=== PATIENT | male | born 1995 | race African-American/Black ===

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

== ENCOUNTER 2017-03-20 18:04 | Emergency (ER) | payer MEDICAID ==
[~2017-03-20] VITALS: Ht 182.9 cm; Wt 71.5 kg
[2017-03-20 18:05] VITALS: BP 119/76
[2017-03-20] MEDS ORDERED: FLUORESCEIN OPHTHALMIC 1 MG STRIP ONE ×2 (18:13→18:29)
[2017-03-20] MEDS ORDERED: PROPARACAINE OPHTH 0.5%, 15ML ONE (18:14)
[2017-03-20] MEDS ORDERED: FLUORESCEIN OPHTHALMIC 1 MG STRIP EACHEYE ONE (18:30)
[2017-03-20] MEDS ORDERED: PROPARACAINE OPHTH 0.5%, 15ML EACHEYE ONE (18:30)
== END 2017-03-20 19:05 | disposition home or self-care (01) ==
LOC: ED 18:30
DX: H18.821 Corneal disorder due to contact lens, right eye (principal); H57.12 Ocular pain, left eye; J45.909 Unspecified asthma, uncomplicated
CPT/HCPCS: 99283

== ENCOUNTER 2017-03-31 23:45 | Emergency (ER) | payer MEDICAID ==
[~2017-03-31] VITALS: Ht 180.3 cm; Wt 71.0 kg
[2017-04-01] MEDS ORDERED: DEXAMETHASONE 4 MG TABLET PO ONE
[2017-04-01] MEDS ORDERED: DEXAMETHASONE 4 MG TABLET ONE (00:05)
[2017-04-01] MEDS ORDERED: SODIUM CHLORIDE 0.9% 1,000ML IVBOLUS ONE (01:00)
[2017-04-01] MEDS ORDERED: SODIUM CHLORIDE FLUSH 10ML SYR IVF ONE (01:00)
[2017-04-01 01:24] LABS: HEMATOCRIT 43.9 % (39.2-51.8); HEMOGLOBIN 14.8 g/dL (13.7-18.0); WHITE BLOOD COUNT 7.8 x10^3/uL (4.5-13.2)
[2017-04-01 01:30] LABS: BLOOD UREA NITROGEN 12 mg/dL (7-18)
[2017-04-01] MEDS ORDERED: OMNIPAQUE 350 MG/ML, 100ML BOTTLE ONE (01:51)
[2017-04-01 02:46] VITALS: BP 106/74
== END 2017-04-01 02:46 | disposition home or self-care (01) ==
LOC: ED 04-01 01:42
DX: J02.9 Acute pharyngitis, unspecified (principal); J45.909 Unspecified asthma, uncomplicated
CPT/HCPCS: 36415; 70360; 70491; 71260; 80048; 82040; 85025; 87081; 87880; 93005; 99285; J7030; Q9967

== ENCOUNTER 2017-04-04 13:40 | Emergency (ER) | payer MEDICAID ==
[~2017-04-04] VITALS: Ht 180.3 cm; Wt 71.4 kg
[2017-04-04 14:48] LABS: HEMATOCRIT 45.2 % (39.2-51.8); HEMOGLOBIN 15.4 g/dL (13.7-18.0); WHITE BLOOD COUNT 4.5 x10^3/uL (4.5-13.2)
[2017-04-04 14:57] LABS: BLOOD UREA NITROGEN 8 mg/dL (7-18)
[2017-04-04 16:07] VITALS: BP 123/87
== END 2017-04-04 17:49 | disposition home or self-care (01) ==
LOC: ED 16:54
DX: R09.1 Pleurisy (principal); J98.2 Interstitial emphysema
CPT/HCPCS: 36415; 70360; 71020; 80048; 82040; 85025; 99285

== ENCOUNTER 2017-04-07 11:37 | Emergency (ER) | payer MEDICAID ==
[~2017-04-07] VITALS: Ht 180.3 cm; Wt 71.0 kg
[2017-04-07 11:50] VITALS: BP 128/85
== END 2017-04-07 13:19 | disposition home or self-care (01) ==
LOC: ED 11:56
DX: Z00.8 Encounter for other general examination (principal); J45.909 Unspecified asthma, uncomplicated
CPT/HCPCS: 99281

== ENCOUNTER 2017-06-04 12:46 | Emergency (ER) | payer MEDICAID ==
[~2017-06-04] VITALS: Ht 180.3 cm; Wt 72.6 kg
[2017-06-04] MEDS ORDERED: FAMOTIDINE 20 MG TABLET ONE (13:41)
[2017-06-04] MEDS ORDERED: ONDANSETRON ODT 4 MG ONE (13:41)
[2017-06-04] MEDS ORDERED: IBUPROFEN 200 MG TABLET ONE (13:41)
[2017-06-04] MEDS ORDERED: FAMOTIDINE 20 MG TABLET PO ONE (14:00)
[2017-06-04] MEDS ORDERED: ONDANSETRON ODT 4 MG PO ONE (14:00)
[2017-06-04] MEDS ORDERED: IBUPROFEN 200 MG TABLET PO ONE (14:00)
[2017-06-04 14:02] LABS: BLOOD UREA NITROGEN 12 mg/dL (7-18)
[2017-06-04 14:04] LABS: HEMATOCRIT 42.8 % (39.2-51.8); HEMOGLOBIN 14.5 g/dL (13.7-18.0); WHITE BLOOD COUNT 4.5 x10^3/uL (4.5-13.2)
[2017-06-04 14:05] LABS: ASPARTATE AMINO TRANSFERASE 17 U/L (15-37)
[2017-06-04 14:39] VITALS: BP 110/66
== END 2017-06-04 14:42 | disposition home or self-care (01) ==
LOC: ED 13:38
DX: R10.31 Right lower quadrant pain (principal); R10.11 Right upper quadrant pain; R07.81 Pleurodynia; J45.909 Unspecified asthma, uncomplicated
CPT/HCPCS: 36415; 71020; 80053; 83690; 85025; 99285; Q0162

== ENCOUNTER 2017-06-09 16:02 | Emergency (ER) | payer MEDICAID ==
[~2017-06-09] VITALS: Ht 182.9 cm; Wt 72.2 kg
[2017-06-09 16:08] VITALS: BP 115/72
[2017-06-09] MEDS ORDERED: IBUPROFEN 200 MG TABLET PO ONE (16:30)
== END 2017-06-09 18:03 | disposition home or self-care (01) ==
LOC: ED 18:00
DX: S83.8X2A Sprain of other specified parts of left knee, initial encounter (principal); J45.909 Unspecified asthma, uncomplicated; W22.8XXA Striking against or struck by other objects, initial encounter; Y93.41 Activity, dancing; Y92.328 Other athletic field as the place of occurrence of the external cause; Y99.8 Other external cause status
CPT/HCPCS: 29505

== ENCOUNTER 2017-06-25 21:49 | Emergency (ER) | payer MEDICAID ==
[~2017-06-25] VITALS: Ht 180.3 cm; Wt 71.5 kg
[2017-06-25 21:56] VITALS: BP 137/83
[2017-06-25] MEDS ORDERED: IBUPROFEN 200 MG TABLET PO ONE (22:30)
== END 2017-06-25 23:32 | disposition home or self-care (01) ==
LOC: ED 22:46
DX: S83.92XA Sprain of unspecified site of left knee, initial encounter (principal); X50.1XXA Overexertion from prolonged static or awkward postures, initial encounter; Y93.89 Activity, other specified; Y92.098 Other place in other non-institutional residence as the place of occurrence of the external cause; Y99.8 Other external cause status
CPT/HCPCS: 99284

== ENCOUNTER 2017-09-01 08:38 | Emergency (ER) | payer MEDICAID ==
[~2017-09-01] VITALS: Ht 177.8 cm; Wt 72.4 kg
[2017-09-01 08:41] VITALS: BP 144/91
[2017-09-01] MEDS ORDERED: KETOROLAC 30 MG/1 ML IM ONE (09:30)
[2017-09-01] MEDS ORDERED: KETOROLAC 30 MG/1 ML ONE (10:42)
== END 2017-09-01 10:58 | disposition home or self-care (01) ==
LOC: ED 08:54
DX: M26.622 Arthralgia of left temporomandibular joint (principal); J45.909 Unspecified asthma, uncomplicated
CPT/HCPCS: 70100; 96372; 99284; J1885

== ENCOUNTER 2017-09-02 16:08 | Inpatient (IN) | payer MEDICAID ==
[~2017-09-02] VITALS: Ht 182.9 cm; Wt 70.9 kg
[2017-09-02] MEDS ORDERED: SODIUM CHLORIDE 0.9% 1,000 ML IV ONE (16:21)
[2017-09-02] MEDS ORDERED: SODIUM CHLORIDE FLUSH 10ML SYR IVF ONE (16:30)
[2017-09-02] MEDS ORDERED: SODIUM CHLORIDE 0.9% 1,000ML IVBOLUS ONE (16:30)
[2017-09-02 16:42] LABS: BASOPHILS # (AUTO) 0.03 x10^3/uL (0-0.3); BASOPHILS % (AUTO) 0 % (0-1); EOSINOPHILS % (AUTO) 0 % (1-7); LYMPHOCYTES # (AUTO) 1.28 x10^3/uL (1-6.1); LYMPHOCYTES % (AUTO) 18 % (22-44); MD NO; MEAN CORPUSCULAR HEMOGLOBIN 29.8 pg (27.5-34.5); MEAN CORPUSCULAR HGB CONC 33.7 g/dL (33.2-36.2); MEAN CORPUSCULAR VOLUME 88.6 fL (81-97); MEAN PLATELET VOLUME 8.9 fL (7.4-10.4); MONOCYTES # (AUTO) 1.44 x10^3/uL (0-1.4); MONOCYTES % (AUTO) 20 % (2-9); NEUTROPHILS # (AUTO) 4.46 x10^3/uL (1.8-8.0); NEUTROPHILS % (AUTO) 62 % (42-75); PLATELET COUNT 179 x10^3/uL (130-400); RED BLOOD COUNT 4.96 x10^6/uL (4.38-5.82); RED CELL DISTRIBUTION WIDTH 13.4 % (9.4-14.8)
[2017-09-02 16:53] LABS: ALBUMIN 3.9 g/dL (3.4-5.0); ANION GAP 8 mmol/L (5-15); CALCIUM 8.8 mg/dL (8.5-10.1); CHLORIDE 104 mmol/L (98-107); CREATININE 1.67 mg/dL (0.7-1.3)
[2017-09-02 16:57] LABS: TROPONIN I < 0.015 ng/mL (0.000-0.045)
[2017-09-02] MEDS ORDERED: VANCOMYCIN PER PHARMACY MC ONE (19:00)
[2017-09-02] MEDS ORDERED: PIPERACILLIN/TAZO/PMX 4.5GM 100 ML IVPB ONE (19:00)
[2017-09-02] MEDS ORDERED: PIPERACILLIN/TAZO/PMX 3.375GM 0 ML ONE (19:02)
[2017-09-02] MEDS ORDERED: SODIUM CHLORIDE FLUSH 10ML SYR IVF PRN (19:30)
[2017-09-02] MEDS ORDERED: VANCOMYCIN 1,400 MG in SODIUM CHLORIDE 0.9% 250 ML IV ONE (19:30)
[2017-09-02] MEDS ORDERED: POLYETHYLENE GLYCOL 17 GM PACKET PO PRN (20:30)
[2017-09-02] MEDS ORDERED: ACETAMINOPHEN 325 MG TABLET PO PRN (20:30)
[2017-09-02] MEDS ORDERED: BISACODYL 10 MG SUPP PR PRN (20:30)
[2017-09-02] MEDS ORDERED: ONDANSETRON 2MG/ML, 2ML IVPush PRN (20:30)
[2017-09-02] MEDS ORDERED: VANCOMYCIN PER PHARMACY MC PRN (20:30)
[2017-09-02] MEDS ORDERED: OXYcodone IR 5MG TABLET ONE (20:37)
[2017-09-02] MEDS ORDERED: ACETAMINOPHEN 325 MG TABLET ONE (20:37)
[2017-09-02] MEDS: OXYcodone IR 5MG TABLET PO PRN ×2 (20:41→23:48)
[2017-09-02] MEDS ORDERED: PHARMACOKINETIC MONITORING MC PRN (21:00)
[2017-09-02] MEDS ORDERED: PHARMACOKINETIC CONSULTATION MC ONE (21:00)
[2017-09-02 21:21] VITALS: BP 91/51
[2017-09-02] MEDS: AMPICILLIN/SULBACTAM 3 GM in SODIUM CHLORIDE 0.9% 100 ML IV SCH (21:52)
[2017-09-02] MEDS: HEPARIN 5,000 UNITS/ML, 1ML SQ SCH (21:52)
[2017-09-03] MEDS: SODIUM CHLORIDE 0.9% 1,000 ML IV SCH ×3 (02:05→15:29)
[2017-09-03 02:07] VITALS: BP 102/63
[2017-09-03] MEDS: AMPICILLIN/SULBACTAM 3 GM in SODIUM CHLORIDE 0.9% 100 ML IV SCH ×4 (02:45→20:39)
[2017-09-03] MEDS: HEPARIN 5,000 UNITS/ML, 1ML SQ SCH ×3 (04:58→20:40)
[2017-09-03] MEDS: VANCOMYCIN 1,400 MG in SODIUM CHLORIDE 0.9% 250 ML IV SCH ×2 (04:58→17:29)
[2017-09-03] MEDS ORDERED: VANCOMYCIN 1,400 MG in SODIUM CHLORIDE 0.9% 250 ML IV SCH (05:00)
[2017-09-03 05:49] LABS: CHLORIDE 105 mmol/L (98-107)
[2017-09-03 05:58] LABS: ALANINE AMINOTRANSFERASE 9 U/L (12-78); ALBUMIN 3.1 g/dL (3.4-5.0); ALKALINE PHOSPHATASE 73 U/L (45-117); ANION GAP 7 mmol/L (5-15); CREATININE 1.44 mg/dL (0.7-1.3); TOTAL PROTEIN 6.9 g/dL (6.4-8.2)
[2017-09-03 06:13] LABS: MEAN CORPUSCULAR HGB CONC 33.5 g/dL (33.2-36.2); MEAN CORPUSCULAR VOLUME 89.8 fL (81-97); MEAN PLATELET VOLUME 9.9 fL (7.4-10.4); PLATELET COUNT 157 x10^3/uL (130-400); RED BLOOD COUNT 4.34 x10^6/uL (4.38-5.82); RED CELL DISTRIBUTION WIDTH 12.9 % (9.4-14.8)
[2017-09-03 06:34] LABS: MD YES
[2017-09-03 06:36] LABS: BASOS#(MANUAL) 0.05 x10^3/uL (0-0.3); BASOS% (MANUAL) 1 % (0-1); EOS% (MANUAL) 2 % (1-7); LYMPH#(MANUAL) 1.57 x10^3/uL (1-6.1); LYMPHS% (MANUAL) 32 % (22-44); MONOS#(MANUAL) 0.59 x10^3/uL (0.3-2.7); MONOS% (MANUAL) 12 % (2-9); SEGS% (MANUAL) 53 % (42-75)
[2017-09-03 06:38] LABS: <PLATELET ESTIMATE> ADEQUATE; <RBC MORPHOLOGY> NORMAL; LARGE PLATELETS 1+
[2017-09-03 08:01] VITALS: BP 114/73
[2017-09-03] MEDS: OXYcodone IR 5MG TABLET PO PRN ×4 (08:16→20:40)
[2017-09-03] MEDS: SENNA/DOCUSATE TABLET PO SCH (09:24)
[2017-09-03] MEDS ORDERED: SODIUM CHLORIDE 0.9% 1,000ML IVBOLUS ONE (10:00)
[2017-09-03 10:41] LABS: THYROID STIMULATING HORMONE 1.97 mIU/L (0.358-3.740)
[2017-09-03 11:43] LABS: AMPHETAMINE SCREEN, URINE Negative (Negative); BARBITURATE SCREEN, URINE Negative (Negative); BENZODIAZEPINE SCREEN, URINE Negative (Negative); CANNABINOID SCREEN, URINE Negative (Negative); COCAINE SCREEN, URINE Negative (Negative); METHADONE SCREEN, URINE Negative (Negative); OPIATE SCREEN, URINE Negative (Negative)
[2017-09-03] MEDS ORDERED: OMNIPAQUE 350 MG/ML, 100ML BOTTLE ONE (13:28)
[2017-09-03 14:11] VITALS: BP 120/73
[2017-09-03 20:08] VITALS: BP 116/61
[2017-09-04] MEDS: AMPICILLIN/SULBACTAM 3 GM in SODIUM CHLORIDE 0.9% 100 ML IV SCH ×4 (02:23→21:07)
[2017-09-04] MEDS: SODIUM CHLORIDE 0.9% 1,000 ML IV SCH ×3 (02:23→14:00)
[2017-09-04 02:26] VITALS: BP 111/68
[2017-09-04] MEDS: OXYcodone IR 5MG TABLET PO PRN ×2 (02:31→21:18)
[2017-09-04] MEDS: VANCOMYCIN 1,400 MG in SODIUM CHLORIDE 0.9% 250 ML IV SCH ×2 (05:13→17:40)
[2017-09-04 05:21] LABS: CALCIUM 8.2 mg/dL (8.5-10.1); CHLORIDE 107 mmol/L (98-107)
[2017-09-04] MEDS: HEPARIN 5,000 UNITS/ML, 1ML SQ SCH ×3 (05:22→21:07)
[2017-09-04 05:25] LABS: ANION GAP 6 mmol/L (5-15); CREATININE 1.21 mg/dL (0.7-1.3)
[2017-09-04 06:06] LABS: MEAN CORPUSCULAR HEMOGLOBIN 29.7 pg (27.5-34.5); MEAN CORPUSCULAR VOLUME 90.2 fL (81-97); MEAN PLATELET VOLUME 9.7 fL (7.4-10.4); PLATELET COUNT 149 x10^3/uL (130-400); RED BLOOD COUNT 3.89 x10^6/uL (4.38-5.82); RED CELL DISTRIBUTION WIDTH 13.1 % (9.4-14.8)
[2017-09-04 06:38] LABS: MD YES
[2017-09-04 06:40] LABS: EOS#(MANUAL) 0.05 x10^3/uL (0.0-0.8); EOS% (MANUAL) 1 % (1-7); MONOS#(MANUAL) 0.83 x10^3/uL (0.3-2.7); MONOS% (MANUAL) 18 % (2-9)
[2017-09-04 06:41] LABS: LYMPH#(MANUAL) 2.02 x10^3/uL (1-6.1); LYMPHS% (MANUAL) 44 % (22-44); SEGS% (MANUAL) 37 % (42-75)
[2017-09-04 06:42] LABS: <PLATELET ESTIMATE> ADEQUATE; <RBC MORPHOLOGY> NORMAL; LARGE PLATELETS 1+
[2017-09-04] MEDS: SENNA/DOCUSATE TABLET PO SCH (08:02)
[2017-09-04 08:09] VITALS: BP 97/59
[2017-09-04 14:02] VITALS: BP 94/53
[2017-09-04 20:47] VITALS: BP 111/77
[2017-09-05] MEDS: AMPICILLIN/SULBACTAM 3 GM in SODIUM CHLORIDE 0.9% 100 ML IV SCH ×2 (02:25→07:58)
[2017-09-05] MEDS: SODIUM CHLORIDE 0.9% 1,000 ML IV SCH (02:25)
[2017-09-05 02:27] VITALS: BP 102/63
[2017-09-05] MEDS: VANCOMYCIN 1,400 MG in SODIUM CHLORIDE 0.9% 250 ML IV SCH (05:07)
[2017-09-05] MEDS: HEPARIN 5,000 UNITS/ML, 1ML SQ SCH ×2 (05:08→13:00)
[2017-09-05 05:16] LABS: MEAN CORPUSCULAR HEMOGLOBIN 30.4 pg (27.5-34.5); MEAN CORPUSCULAR HGB CONC 33.9 g/dL (33.2-36.2); MEAN CORPUSCULAR VOLUME 89.8 fL (81-97); MEAN PLATELET VOLUME 9.3 fL (7.4-10.4); PLATELET COUNT 166 x10^3/uL (130-400); RED CELL DISTRIBUTION WIDTH 13.2 % (9.4-14.8)
[2017-09-05 05:25] LABS: CHLORIDE 105 mmol/L (98-107)
[2017-09-05 05:33] LABS: ANION GAP 7 mmol/L (5-15); CALCIUM 8.4 mg/dL (8.5-10.1); CREATININE 1.05 mg/dL (0.7-1.3); VANCOMYCIN,TROUGH 14.1 mcg/mL (5.0-10.0)
[2017-09-05 06:19] LABS: MD YES
[2017-09-05 06:21] LABS: EOS#(MANUAL) 0.19 x10^3/uL (0.0-0.8); EOS% (MANUAL) 5 % (1-7); LYMPH#(MANUAL) 2.18 x10^3/uL (1-6.1); LYMPHS% (MANUAL) 59 % (22-44); MONOS#(MANUAL) 0.67 x10^3/uL (0.3-2.7); MONOS% (MANUAL) 18 % (2-9); REACTIVE LYMPHS # (MANUAL) 0.04 x10^3/uL (0-0); REACTIVE LYMPHS % (MANUAL) 1 % (0-0); SEG#(MANUAL) 0.63 x10^3/uL (1.8-8); SEGS% (MANUAL) 17 % (42-75)
[2017-09-05 06:24] LABS: <RBC MORPHOLOGY> NORMAL
[2017-09-05 06:25] LABS: <PLATELET ESTIMATE> ADEQUATE; LARGE PLATELETS 1+
[2017-09-05] MEDS: SENNA/DOCUSATE TABLET PO SCH (07:58)
[2017-09-05 08:05] VITALS: BP 103/66
[2017-09-05] MEDS ORDERED: AMOX1TAB64 PO (12:25)
[2017-09-05] MEDS ORDERED: METH4TAB2 PO (12:25)
== END 2017-09-05 16:05 | disposition home or self-care (01) | DRG 74 ==
LOC: ED 19:24 → EDIP 19:35 → 5SO 20:53
PROVIDERS: ADMIT Hospitalist; ATTEND Hospitalist
DX: G90.8 Other disorders of autonomic nervous system (principal); N17.9 Acute kidney failure, unspecified; L03.221 Cellulitis of neck; J03.90 Acute tonsillitis, unspecified; J45.909 Unspecified asthma, uncomplicated; K11.21 Acute sialoadenitis; Z87.11 Personal history of peptic ulcer disease; M54.9 Dorsalgia, unspecified
CPT/HCPCS: 36415; 70450; 70491; 70551; 71275; 80048; 80053; 80202; 80307; 82040; 82962; 83605; 83735; 84145; 84443; 84484; 85025; 85379; 86308; 87040; 93005; 93306; 93880; 96361; 96365; 96366; J0295; J1644; J2543; J3370; Q9967; G0260; J7030; J7050

== ENCOUNTER 2017-09-05 17:13 | Emergency (ER) | payer MEDICAID ==
[~2017-09-05] VITALS: Ht 180.3 cm; Wt 72.4 kg
[~2017-09-05 17:13] MED LIST changes: +AMOX1TAB64 PO; +METH4TAB2 PO
[2017-09-05] MEDS ORDERED: SODIUM CHLORIDE FLUSH 10ML SYR IVF ONE (17:30)
[2017-09-05] MEDS ORDERED: SODIUM CHLORIDE 0.9% 1,000ML IVBOLUS ONE (17:30)
[2017-09-05] MEDS ORDERED: PLEASE ENTER HEIGHT AND WEIGHT MC SCH (17:30)
[2017-09-05 18:01] LABS: BASOPHILS # (AUTO) 0.03 x10^3/uL (0-0.3); BASOPHILS % (AUTO) 1 % (0-1); EOSINOPHILS # (AUTO) 0.09 x10^3/uL (0-0.8); EOSINOPHILS % (AUTO) 3 % (1-7); LYMPHOCYTES # (AUTO) 1.44 x10^3/uL (1-6.1); LYMPHOCYTES % (AUTO) 45 % (22-44); MD NO; MEAN CORPUSCULAR HEMOGLOBIN 29.9 pg (27.5-34.5); MEAN CORPUSCULAR HGB CONC 33.5 g/dL (33.2-36.2); MEAN CORPUSCULAR VOLUME 89.4 fL (81-97); MEAN PLATELET VOLUME 9.2 fL (7.4-10.4); MONOCYTES # (AUTO) 0.61 x10^3/uL (0-1.4); MONOCYTES % (AUTO) 19 % (2-9); NEUTROPHILS # (AUTO) 1.03 x10^3/uL (1.8-8.0); NEUTROPHILS % (AUTO) 32 % (42-75); PLATELET COUNT 190 x10^3/uL (130-400); RED BLOOD COUNT 4.49 x10^6/uL (4.38-5.82); RED CELL DISTRIBUTION WIDTH 12.9 % (9.4-14.8)
[2017-09-05 18:03] LABS: ALANINE AMINOTRANSFERASE 10 U/L (12-78); ALBUMIN 3.5 g/dL (3.4-5.0); ANION GAP 8 mmol/L (5-15); CALCIUM 8.6 mg/dL (8.5-10.1); CHLORIDE 106 mmol/L (98-107); CREATININE 1.01 mg/dL (0.7-1.3)
[2017-09-05 18:06] LABS: ALKALINE PHOSPHATASE 66 U/L (45-117); BILIRUBIN,TOTAL 0.4 mg/dL (0.2-1.0); TOTAL PROTEIN 7.6 g/dL (6.4-8.2)
[2017-09-05 19:27] VITALS: BP 134/84
== END 2017-09-05 19:29 | disposition home or self-care (01) ==
LOC: ED 19:10
DX: F43.0 Acute stress reaction (principal); R55 Syncope and collapse; J45.909 Unspecified asthma, uncomplicated
CPT/HCPCS: 36415; 71045; 80053; 85025; 93005; 96360; 99285; J7030

== ENCOUNTER 2017-10-08 21:27 | Emergency (ER) | payer MEDICAID ==
[~2017-10-08] VITALS: Ht 182.9 cm; Wt 72.3 kg
[2017-10-08 22:52] LABS: MD YES; MEAN CORPUSCULAR HEMOGLOBIN 30.3 pg (27.5-34.5); MEAN CORPUSCULAR HGB CONC 33.8 g/dL (33.2-36.2); MEAN CORPUSCULAR VOLUME 89.7 fL (81-97); MEAN PLATELET VOLUME 8.9 fL (7.4-10.4); PLATELET COUNT 199 x10^3/uL (130-400); RED BLOOD COUNT 4.96 x10^6/uL (4.38-5.82); RED CELL DISTRIBUTION WIDTH 13.5 % (9.4-14.8)
[2017-10-08 22:59] LABS: ALANINE AMINOTRANSFERASE 15 U/L (12-78); ANION GAP 7 mmol/L (5-15); CALCIUM 8.7 mg/dL (8.5-10.1); CHLORIDE 104 mmol/L (98-107); CREATININE 1.37 mg/dL (0.7-1.3)
[2017-10-08 23:06] LABS: ALKALINE PHOSPHATASE 96 U/L (45-117); BILIRUBIN,TOTAL 0.5 mg/dL (0.2-1.0); TOTAL PROTEIN 8.5 g/dL (6.4-8.2)
[2017-10-08 23:25] LABS: BAND#(MANUAL) 0.07 x10^3/uL; BANDS%(MANUAL) 1 % (0-7); EOS#(MANUAL) 0.21 x10^3/uL (0.0-0.8); EOS% (MANUAL) 3 % (1-7); LYMPH#(MANUAL) 1.78 x10^3/uL (1-6.1); LYMPHS% (MANUAL) 25 % (22-44); MONOS#(MANUAL) 1.49 x10^3/uL (0.3-2.7); MONOS% (MANUAL) 21 % (2-9); REACTIVE LYMPHS # (MANUAL) 0.14 x10^3/uL (0-0); REACTIVE LYMPHS % (MANUAL) 2 % (0-0); SEG#(MANUAL) 3.41 x10^3/uL (1.8-8); SEGS% (MANUAL) 48 % (42-75)
[2017-10-08 23:27] LABS: <PLATELET ESTIMATE> ADEQUATE; <PLT MORPHOLOGY> NORMAL PLT MORPH; <RBC MORPHOLOGY> NORMAL
[2017-10-08 23:33] LABS: AMPHETAMINE SCREEN, URINE Negative (Negative); BARBITURATE SCREEN, URINE Negative (Negative); BENZODIAZEPINE SCREEN, URINE Negative (Negative); CANNABINOID SCREEN, URINE Negative (Negative); COCAINE SCREEN, URINE Negative (Negative); METHADONE SCREEN, URINE Negative (Negative); OPIATE SCREEN, URINE Negative (Negative)
[2017-10-09 00:32] VITALS: BP 115/70
== END 2017-10-09 00:40 | disposition home or self-care (01) ==
LOC: ED 10-09 00:05
DX: G44.219 Episodic tension-type headache, not intractable (principal); R42 Dizziness and giddiness; J45.909 Unspecified asthma, uncomplicated; F43.9 Reaction to severe stress, unspecified; Z79.899 Other long term (current) drug therapy
CPT/HCPCS: 36415; 80053; 80307; 85025; 93005; 99285

== ENCOUNTER 2017-11-17 02:26 | Emergency (ER) | payer MEDICAID ==
[~2017-11-17] VITALS: Ht 180.3 cm; Wt 68.0 kg
[2017-11-17 02:39] VITALS: BP 114/78
[2017-11-17] MEDS ORDERED: LORazepam 2 MG/ML, 1ML ONE (02:47)
[2017-11-17] MEDS ORDERED: LORazepam 2 MG/ML, 1ML IM ONE (03:00)
== END 2017-11-17 04:17 | disposition home or self-care (01) ==
LOC: ED 02:40
DX: F43.0 Acute stress reaction (principal); J45.909 Unspecified asthma, uncomplicated
CPT/HCPCS: 71045; 93005; 96372; 99284; J2060

== ENCOUNTER 2017-12-14 15:36 | Emergency (ER) | payer MEDICAID ==
[~2017-12-14] VITALS: Ht 182.9 cm; Wt 73.3 kg
[2017-12-14 16:30] LABS: BASOPHILS # (AUTO) 0.06 x10^3/uL (0-0.3); BASOPHILS % (AUTO) 1 % (0-1); EOSINOPHILS # (AUTO) 0.15 x10^3/uL (0-0.8); EOSINOPHILS % (AUTO) 3 % (1-7); LYMPHOCYTES # (AUTO) 2.13 x10^3/uL (1-6.1); LYMPHOCYTES % (AUTO) 40 % (22-44); MD NO; MEAN CORPUSCULAR HEMOGLOBIN 29.6 pg (27.5-34.5); MEAN CORPUSCULAR HGB CONC 33.4 g/dL (33.2-36.2); MEAN CORPUSCULAR VOLUME 88.7 fL (81-97); MEAN PLATELET VOLUME 8.7 fL (7.4-10.4); MONOCYTES % (AUTO) 17 % (2-9); NEUTROPHILS # (AUTO) 2.08 x10^3/uL (1.8-8.0); NEUTROPHILS % (AUTO) 39 % (42-75); PLATELET COUNT 194 x10^3/uL (130-400); RED BLOOD COUNT 4.51 x10^6/uL (4.38-5.82); RED CELL DISTRIBUTION WIDTH 13.1 % (9.4-14.8)
[2017-12-14] MEDS ORDERED: KETOROLAC 30 MG/1 ML IM ONE (16:30)
[2017-12-14] MEDS ORDERED: MAALOX/HYOSCYAMINE/LIDOCAINE 45 ML BTL PO ONE (16:30)
[2017-12-14 16:34] LABS: ALANINE AMINOTRANSFERASE 15 U/L (12-78); ALBUMIN 3.8 g/dL (3.4-5.0); ANION GAP 6 mmol/L (5-15); CALCIUM 8.3 mg/dL (8.5-10.1); CHLORIDE 107 mmol/L (98-107); CREATININE 1.17 mg/dL (0.7-1.3)
[2017-12-14 16:36] LABS: ALKALINE PHOSPHATASE 87 U/L (45-117); BILIRUBIN,TOTAL 0.4 mg/dL (0.2-1.0); TOTAL PROTEIN 7.5 g/dL (6.4-8.2)
[2017-12-14 16:57] LABS: MICROSCOPIC NOT IND
[2017-12-14 17:05] LABS: CULTURE INDICATED? NO
[2017-12-14] MEDS ORDERED: MAALOX/HYOSCYAMINE/LIDOCAINE 45 ML BTL ONE (17:08)
[2017-12-14] MEDS ORDERED: KETOROLAC 30 MG/1 ML ONE (17:08)
[2017-12-14 17:59] VITALS: BP 117/68
== END 2017-12-14 18:01 | disposition home or self-care (01) ==
LOC: ED 17:27
DX: R07.89 Other chest pain (principal)
CPT/HCPCS: 36415; 71046; 80053; 81003; 85025; 93005; 96372; 99285; J1885

== ENCOUNTER 2018-03-02 13:02 | Emergency (ER) | payer MEDICAID ==
[~2018-03-02] VITALS: Ht 182.9 cm; Wt 75.0 kg
[2018-03-02] MEDS ORDERED: SODIUM CHLORIDE 0.9% 1,000ML IVBOLUS ONE (13:30)
[2018-03-02] MEDS ORDERED: SODIUM CHLORIDE FLUSH 10ML SYR IVF ONE (13:30)
[2018-03-02] MEDS ORDERED: ACETAMINOPHEN 500 MG TABLET PO ONE (13:30)
[2018-03-02] MEDS ORDERED: ONDANSETRON ODT 4 MG PO ONE (13:30)
[2018-03-02 13:41] LABS: ALBUMIN 3.5 g/dL (3.4-5.0); ANION GAP 3 mmol/L (5-15); CALCIUM 8.4 mg/dL (8.5-10.1); CHLORIDE 110 mmol/L (98-107)
[2018-03-02 13:42] LABS: BASOPHILS # (AUTO) 0.02 x10^3/uL (0-0.3); BASOPHILS % (AUTO) 0 % (0-1); EOSINOPHILS # (AUTO) 0.02 x10^3/uL (0-0.8); EOSINOPHILS % (AUTO) 1 % (1-7); LYMPHOCYTES # (AUTO) 1.22 x10^3/uL (1-6.1); LYMPHOCYTES % (AUTO) 28 % (22-44); MD NO; MEAN CORPUSCULAR HEMOGLOBIN 30.4 pg (27.5-34.5); MEAN CORPUSCULAR HGB CONC 33.9 g/dL (33.2-36.2); MEAN CORPUSCULAR VOLUME 89.7 fL (81-97); MONOCYTES # (AUTO) 0.66 x10^3/uL (0-1.4); MONOCYTES % (AUTO) 15 % (2-9); NEUTROPHILS # (AUTO) 2.42 x10^3/uL (1.8-8.0); NEUTROPHILS % (AUTO) 56 % (42-75); PLATELET COUNT 201 x10^3/uL (130-400); RED BLOOD COUNT 4.89 x10^6/uL (4.38-5.82); RED CELL DISTRIBUTION WIDTH 13.5 % (9.4-14.8)
[2018-03-02] MEDS ORDERED: ONDANSETRON ODT 4 MG ONE (14:02)
[2018-03-02] MEDS ORDERED: ACETAMINOPHEN 500 MG TABLET ONE (14:02)
[2018-03-02 15:32] VITALS: BP 104/44
== END 2018-03-02 15:38 | disposition home or self-care (01) ==
LOC: ED 14:41
DX: S06.0X0A Concussion without loss of consciousness, initial encounter (principal); Y04.0XXA Assault by unarmed brawl or fight, initial encounter; Y93.89 Activity, other specified; Y92.830 Public park as the place of occurrence of the external cause; Y99.8 Other external cause status
CPT/HCPCS: 36415; 70450; 72110; 80048; 82040; 85025; 99285; J7030; Q0162

== ENCOUNTER 2018-04-07 06:04 | Emergency (ER) | payer MEDICAID ==
[~2018-04-07] VITALS: Ht 182.9 cm; Wt 72.0 kg
[2018-04-07] MEDS ORDERED: SODIUM CHLORIDE 0.9% 1,000ML IVBOLUS ONE (06:30)
[2018-04-07] MEDS ORDERED: DIPHENHYDRAMINE 50 MG/ML, 1ML IVPush ONE (06:30)
[2018-04-07] MEDS: KETOROLAC 30 MG/1 ML IVPush ONE ×2 (06:35→06:49)
[2018-04-07] MEDS: METOCLOPRAMIDE 5 MG/ML, 2ML IVPush ONE ×2 (06:36→06:49)
[2018-04-07 07:52] VITALS: BP 129/85
== END 2018-04-07 07:54 | disposition home or self-care (01) ==
LOC: ED 06:51
DX: G44.219 Episodic tension-type headache, not intractable (principal)
CPT/HCPCS: 70450; 96374; 96375; 99284; J1200; J1885; J2765; J7030

== ENCOUNTER 2018-04-15 02:24 | Emergency (ER) | payer MEDICAID ==
[~2018-04-15] VITALS: Ht 182.9 cm; Wt 72.0 kg
[2018-04-15] MEDS ORDERED: ONDANSETRON ODT 4 MG ONE (02:47)
[2018-04-15] MEDS ORDERED: ONDANSETRON ODT 4 MG PO ONE (03:00)
[2018-04-15 03:07] LABS: MEAN CORPUSCULAR HEMOGLOBIN 30.6 pg (27.5-34.5); MEAN CORPUSCULAR HGB CONC 33.7 g/dL (33.2-36.2); MEAN CORPUSCULAR VOLUME 90.6 fL (81-97); MEAN PLATELET VOLUME 8.7 fL (7.4-10.4); PLATELET COUNT 223 x10^3/uL (130-400); RED BLOOD COUNT 4.65 x10^6/uL (4.38-5.82); RED CELL DISTRIBUTION WIDTH 13.5 % (9.4-14.8)
[2018-04-15 03:14] LABS: ALANINE AMINOTRANSFERASE 18 U/L (12-78); ALBUMIN 3.6 g/dL (3.4-5.0); ANION GAP 6 mmol/L (5-15); CALCIUM 8.4 mg/dL (8.5-10.1); CHLORIDE 107 mmol/L (98-107); CREATININE 1.27 mg/dL (0.7-1.3)
[2018-04-15 03:17] LABS: ALKALINE PHOSPHATASE 87 U/L (45-117); BILIRUBIN,TOTAL 0.3 mg/dL (0.2-1.0); TOTAL PROTEIN 7.1 g/dL (6.4-8.2)
[2018-04-15] MEDS ORDERED: KETOROLAC 30 MG/1 ML ONE (03:22)
[2018-04-15 03:28] LABS: MICROSCOPIC NOT IND
[2018-04-15] MEDS ORDERED: KETOROLAC 30 MG/1 ML IM ONE (03:30)
[2018-04-15 03:36] LABS: MD YES
[2018-04-15 03:36] LABS: CULTURE INDICATED? NO
[2018-04-15 03:40] LABS: LYMPH#(MANUAL) 2.02 x10^3/uL (1-6.1); LYMPHS% (MANUAL) 31 % (22-44); MONOS#(MANUAL) 1.11 x10^3/uL (0.3-2.7); MONOS% (MANUAL) 17 % (2-9); SEG#(MANUAL) 3.38 x10^3/uL (1.8-8); SEGS% (MANUAL) 52 % (42-75)
[2018-04-15 03:41] LABS: <PLATELET ESTIMATE> ADEQUATE; <PLT MORPHOLOGY> NORMAL PLT MORPH; <RBC MORPHOLOGY> NORMAL
[2018-04-15 04:37] VITALS: BP 112/69
== END 2018-04-15 04:39 | disposition home or self-care (01) ==
LOC: ED 02:56
DX: R11.10 Vomiting, unspecified (principal); J45.909 Unspecified asthma, uncomplicated
CPT/HCPCS: 36415; 80053; 81003; 85025; 93005; 99285; Q0162

== ENCOUNTER 2018-04-27 10:31 | Emergency (ER) | payer MEDICAID ==
[~2018-04-27] VITALS: Ht 182.9 cm; Wt 76.4 kg
[2018-04-27] MEDS ORDERED: CEFTRIAXONE 250 MG IM ONE (11:00)
[2018-04-27] MEDS ORDERED: AZITHROMYCIN 500 MG TABLET PO ONE (11:00)
[2018-04-27] MEDS ORDERED: CEFTRIAXONE 250 MG ONE (11:06)
[2018-04-27] MEDS ORDERED: AZITHROMYCIN 500 MG TABLET ONE (11:06)
[2018-04-27 11:16] LABS: MICROSCOPIC AUTO
[2018-04-27 11:18] LABS: CULTURE INDICATED? YES
[2018-04-27 11:32] VITALS: BP 128/82
== END 2018-04-27 11:35 | disposition home or self-care (01) ==
LOC: ED 11:12
DX: N34.1 Nonspecific urethritis (principal); J45.909 Unspecified asthma, uncomplicated
CPT/HCPCS: 81001; 87086; 87491; 87591; 96372; 99284; J0696

== ENCOUNTER 2018-05-21 12:27 | Emergency (ER) | payer MEDICAID ==
[~2018-05-21] VITALS: Ht 188 cm; Wt 64.0 kg
[2018-05-21] MEDS ORDERED: SODIUM CHLORIDE 0.9% 1,000ML IVBOLUS ONE (13:00)
[2018-05-21] MEDS ORDERED: MORPHINE SULFATE 4 MG/ML, 1ML IVPush PRN (13:00)
[2018-05-21] MEDS ORDERED: ONDANSETRON ODT 4 MG PO ONE (13:00)
[2018-05-21] MEDS ORDERED: MORPHINE SULFATE 4 MG/ML, 1ML ONE (13:17)
[2018-05-21] MEDS ORDERED: ONDANSETRON 2MG/ML, 2ML ONE ×2 (13:17→13:26)
[2018-05-21 13:22] LABS: MEAN CORPUSCULAR HGB CONC 33.5 g/dL (33.2-36.2); MEAN CORPUSCULAR VOLUME 89.7 fL (81-97); MEAN PLATELET VOLUME 8.8 fL (7.4-10.4); PLATELET COUNT 207 x10^3/uL (130-400); RED BLOOD COUNT 4.94 x10^6/uL (4.38-5.82); RED CELL DISTRIBUTION WIDTH 12.9 % (9.4-14.8)
[2018-05-21 13:27] LABS: ALBUMIN 3.6 g/dL (3.4-5.0); ANION GAP 9 mmol/L (5-15); CALCIUM 8.6 mg/dL (8.5-10.1); CHLORIDE 106 mmol/L (98-107); CREATININE 1.27 mg/dL (0.7-1.3)
[2018-05-21] MEDS ORDERED: ONDANSETRON 2MG/ML, 2ML IVPush ONE (13:30)
[2018-05-21 14:30] LABS: MD YES
[2018-05-21 14:33] LABS: BAND#(MANUAL) 0.05 x10^3/uL; BANDS%(MANUAL) 1 % (0-7); LYMPH#(MANUAL) 0.78 x10^3/uL (1-6.1); LYMPHS% (MANUAL) 15 % (22-44); MONOS#(MANUAL) 0.94 x10^3/uL (0.3-2.7); MONOS% (MANUAL) 18 % (2-9); REACTIVE LYMPHS # (MANUAL) 0.05 x10^3/uL (0-0); REACTIVE LYMPHS % (MANUAL) 1 % (0-0); SEG#(MANUAL) 3.38 x10^3/uL (1.8-8); SEGS% (MANUAL) 65 % (42-75)
[2018-05-21 14:36] LABS: <PLATELET ESTIMATE> ADEQUATE; <PLT MORPHOLOGY> NORMAL PLT MORPH; <RBC MORPHOLOGY> NORMAL
[2018-05-21 15:12] VITALS: BP 102/52
== END 2018-05-21 15:29 | disposition home or self-care (01) ==
LOC: ED 13:21
DX: T40.2X5A Adverse effect of other opioids, initial encounter (principal); R55 Syncope and collapse; R11.2 Nausea with vomiting, unspecified; E86.0 Dehydration; E86.9 Volume depletion, unspecified; Y92.9 Unspecified place or not applicable
CPT/HCPCS: 36415; 80048; 82040; 85025; 93005; 96361; 96374; 96375; 99285; J2405; J7030

== ENCOUNTER 2018-05-22 02:14 | Emergency (ER) | payer MEDICAID ==
[~2018-05-22] VITALS: Ht 182.9 cm; Wt 71.0 kg
[2018-05-22 02:17] VITALS: BP 103/66
[2018-05-22] MEDS ORDERED: KETOROLAC 30 MG/1 ML ONE (03:24)
[2018-05-22] MEDS ORDERED: KETOROLAC 30 MG/1 ML IM ONE (03:30)
== END 2018-05-22 04:20 | disposition home or self-care (01) ==
LOC: ED 02:50
DX: R51 Headache (principal); J45.909 Unspecified asthma, uncomplicated
CPT/HCPCS: 96372; 99283; J1885

== ENCOUNTER 2018-05-29 14:44 | Emergency (ER) | payer MEDICAID ==
[~2018-05-29] VITALS: Ht 182.9 cm; Wt 68.5 kg
[2018-05-29 14:51] VITALS: BP 110/70
[2018-05-29] MEDS ORDERED: BACITRACIN ZINC OINT 500U/GM, 0.9 GM ONE (15:17)
== END 2018-05-29 15:35 | disposition home or self-care (01) ==
LOC: ED 15:30
DX: S50.11XA Contusion of right forearm, initial encounter (principal); S80.11XA Contusion of right lower leg, initial encounter; Y04.2XXA Assault by strike against or bumped into by another person, initial encounter; Y93.89 Activity, other specified; Y92.009 Unspecified place in unspecified non-institutional (private) residence as the place of occurrence of the external cause; Y99.8 Other external cause status
CPT/HCPCS: 99284

== ENCOUNTER 2018-07-20 18:49 | Emergency (ER) | payer MEDICAID ==
[~2018-07-20] VITALS: Ht 182.9 cm; Wt 71.8 kg
[2018-07-20 18:52] VITALS: BP 125/83
[2018-07-20] MEDS ORDERED: SODIUM CHLORIDE 0.9% 1,000ML IVBOLUS ONE (19:00)
[2018-07-20] MEDS ORDERED: KETOROLAC 30 MG/1 ML ONE (19:19)
[2018-07-20] MEDS ORDERED: METOCLOPRAMIDE 5 MG/ML, 2ML ONE (19:19)
[2018-07-20] MEDS ORDERED: ACETAMINOPHEN 325 MG TABLET ONE (19:19)
[2018-07-20] MEDS ORDERED: DIPHENHYDRAMINE 50 MG/ML, 1ML ONE (19:19)
[2018-07-20] MEDS ORDERED: ACETAMINOPHEN 325 MG TABLET PO ONE (19:30)
[2018-07-20] MEDS: METOCLOPRAMIDE 5 MG/ML, 2ML IVPush ONE (19:32)
[2018-07-20] MEDS: DIPHENHYDRAMINE 50 MG/ML, 1ML IVPush ONE (19:32)
[2018-07-20] MEDS: SODIUM CHLORIDE FLUSH 10ML SYR IVF ONE (19:32)
[2018-07-20] MEDS: KETOROLAC 30 MG/1 ML IVPush ONE (19:32)
--- NOTE | 2018-07-20 19:32 | NUR ---
PT MEDICATED PER SEP, HOLDING TYLENOL AT THIS TIME WITH MEDICAL ASSISTING PROGRAM DIRECTOR PERMISSION D/T ETOH CONSUMPTION LAST NIGHT
[2018-07-20 19:34] LABS: BASOPHILS # (AUTO) 0.02 x10^3/uL (0-0.3); BASOPHILS % (AUTO) 0 % (0-1); EOSINOPHILS % (AUTO) 2 % (1-7); LYMPHOCYTES # (AUTO) 1.24 x10^3/uL (1-6.1); LYMPHOCYTES % (AUTO) 22 % (22-44); MD NO; MEAN CORPUSCULAR HEMOGLOBIN 30.5 pg (27.5-34.5); MEAN CORPUSCULAR HGB CONC 33.9 g/dL (33.2-36.2); MEAN PLATELET VOLUME 8.9 fL (7.4-10.4); MONOCYTES # (AUTO) 0.98 x10^3/uL (0-1.4); MONOCYTES % (AUTO) 17 % (2-9); NEUTROPHILS # (AUTO) 3.32 x10^3/uL (1.8-8.0); NEUTROPHILS % (AUTO) 59 % (42-75); PLATELET COUNT 227 x10^3/uL (130-400); RED BLOOD COUNT 4.95 x10^6/uL (4.38-5.82)
[2018-07-20 19:44] LABS: ANION GAP 5 mmol/L (5-15); CALCIUM 8.8 mg/dL (8.5-10.1); CHLORIDE 106 mmol/L (98-107); CREATININE 1.06 mg/dL (0.7-1.3)
--- NOTE | 2018-07-20 19:49 | NUR ---
REPORT GIVEN TO CRISTIAN RINALDI
== END 2018-07-20 20:47 | disposition home or self-care (01) ==
LOC: ED 20:05
DX: K29.20 Alcoholic gastritis without bleeding (principal); F10.10 Alcohol abuse, uncomplicated; G44.209 Tension-type headache, unspecified, not intractable; F43.9 Reaction to severe stress, unspecified; Y90.9 Presence of alcohol in blood, level not specified
CPT/HCPCS: 36415; 70450; 80048; 82040; 85025; 96374; 96375; 99284; J1200; J1885; J2765

== ENCOUNTER 2018-08-10 06:22 | Emergency (ER) | payer MEDICAID ==
[~2018-08-10] VITALS: Ht 182.9 cm; Wt 70.0 kg
[2018-08-10 06:24] VITALS: BP 118/76
--- NOTE | 2018-08-10 06:40 | NUR ---
PT. TO ED WITH C/O LEFT KNEE PAIN X 3 DAYS AFTER DANCING A FEW NIGHT AGO. PT. ABLE TO AMBULATE TO ROOM WITH STEADY GAIT. DIVINE GALO WAS IN TO EVAL PT. AND DISCUSS POC. CALL LIGHT IN REACH.
[2018-08-10] MEDS ORDERED: IBUPROFEN 600 MG TABLET ONE (06:50)
[2018-08-10] MEDS ORDERED: IBUPROFEN 200 MG TABLET PO ONE (07:00)
--- NOTE | 2018-08-10 07:04 | NUR ---
REPORT TO GENTRY FOSTER.
== END 2018-08-10 07:54 | disposition home or self-care (01) ==
LOC: ED 07:19
DX: S83.411A Sprain of medial collateral ligament of right knee, initial encounter (principal); J45.909 Unspecified asthma, uncomplicated; X58.XXXA Exposure to other specified factors, initial encounter; Y93.41 Activity, dancing; Y92.009 Unspecified place in unspecified non-institutional (private) residence as the place of occurrence of the external cause; Y99.8 Other external cause status
CPT/HCPCS: 99283

== ENCOUNTER 2018-08-16 19:49 | Emergency (ER) | payer MEDICAID ==
[~2018-08-16] VITALS: Ht 182.9 cm; Wt 70.2 kg
[2018-08-16 20:04] VITALS: BP 113/73
[2018-08-16] MEDS ORDERED: KETOROLAC 30 MG/1 ML ONE (20:26)
[2018-08-16] MEDS ORDERED: KETOROLAC 30 MG/1 ML IM ONE (20:30)
== END 2018-08-16 20:38 | disposition home or self-care (01) ==
LOC: ED 20:05
DX: S01.05XA Open bite of scalp, initial encounter (principal); J45.909 Unspecified asthma, uncomplicated; Y04.1XXA Assault by human bite, initial encounter; Y93.89 Activity, other specified; Y92.009 Unspecified place in unspecified non-institutional (private) residence as the place of occurrence of the external cause; Y99.8 Other external cause status
CPT/HCPCS: 99283

== ENCOUNTER 2018-09-14 21:04 | Emergency (ER) | payer MEDICAID ==
[~2018-09-14] VITALS: Ht 182.9 cm; Wt 70.0 kg
[2018-09-14 21:15] VITALS: BP 124/79
--- NOTE | 2018-09-14 21:50 | NUR ---
UA COLLECTED AND SENT TO LAB
[2018-09-14 21:53] LABS: BASOPHILS # (AUTO) 0.02 x10^3/uL (0-0.1); BASOPHILS % (AUTO) 1 % (0-1); EOSINOPHILS % (AUTO) 2 % (1-7); LYMPHOCYTES # (AUTO) 1.49 x10^3/uL (1-3.4); LYMPHOCYTES % (AUTO) 33 % (22-44); MD NO; MEAN CORPUSCULAR HEMOGLOBIN 30.8 pg (27.5-34.5); MEAN CORPUSCULAR HGB CONC 33.5 g/dL (33.2-36.2); MEAN PLATELET VOLUME 8.5 fL (7.4-10.4); MONOCYTES # (AUTO) 0.84 x10^3/uL (0.2-0.8); MONOCYTES % (AUTO) 18 % (2-9); NEUTROPHILS # (AUTO) 2.13 x10^3/uL (1.8-6.8); NEUTROPHILS % (AUTO) 47 % (42-75); PLATELET COUNT 189 x10^3/uL (130-400); RED BLOOD COUNT 4.57 x10^6/uL (4.38-5.82); RED CELL DISTRIBUTION WIDTH 15.3 % (9.4-14.8)
[2018-09-14] MEDS ORDERED: MAALOX/HYOSCYAMINE/LIDOCAINE 45 ML BTL ONE (21:53)
--- NOTE | 2018-09-14 21:56 | NUR ---
PT MEDICATED PER MAR
[2018-09-14 21:58] LABS: MICROSCOPIC NOT IND
[2018-09-14] MEDS ORDERED: MAALOX/HYOSCYAMINE/LIDOCAINE 45 ML BTL PO ONE (22:00)
[2018-09-14 22:02] LABS: CULTURE INDICATED? NO
[2018-09-14 22:05] LABS: ALANINE AMINOTRANSFERASE 18 U/L (12-78); ALBUMIN 3.9 g/dL (3.4-5.0); ANION GAP 5 mmol/L (5-15); CALCIUM 8.7 mg/dL (8.5-10.1); CHLORIDE 108 mmol/L (98-107); CREATININE 1.35 mg/dL (0.7-1.3)
[2018-09-14 22:07] LABS: ALKALINE PHOSPHATASE 103 U/L (45-117); BILIRUBIN,TOTAL 0.3 mg/dL (0.2-1.0); TOTAL PROTEIN 7.6 g/dL (6.4-8.2)
--- NOTE | 2018-09-14 22:10 | NUR ---
ALL RESULTS BACK AT [facility] TIME, CHART UP FOR RECHECK
--- NOTE | 2018-09-14 22:22 | NUR ---
AT BEDSIDE TO RECHECK PT
== END 2018-09-14 22:37 | disposition home or self-care (01) ==
LOC: ED 22:31
DX: K29.00 Acute gastritis without bleeding (principal); J45.909 Unspecified asthma, uncomplicated; Z88.5 Allergy status to narcotic agent
CPT/HCPCS: 36415; 80053; 81003; 83690; 85025; 99283

== ENCOUNTER 2018-09-25 14:23 | Emergency (ER) | payer MEDICAID ==
[~2018-09-25] VITALS: Ht 182.9 cm; Wt 72.0 kg
[2018-09-25 14:31] VITALS: BP 137/86
[2018-09-25] MEDS ORDERED: IBUPROFEN 200 MG TABLET PO ONE (15:30)
[2018-09-25] MEDS ORDERED: IBUPROFEN 200 MG TABLET ONE (15:38)
--- NOTE | 2018-09-25 16:05 | NUR ---
Patient/Caregiver given discharge instructions and they have confirmed that they understand the instructions. Patient ambulatory with steady gait with crutches.
== END 2018-09-25 16:06 | disposition home or self-care (01) ==
LOC: ED 14:49
DX: S86.912A Strain of unspecified muscle(s) and tendon(s) at lower leg level, left leg, initial encounter (principal); G44.209 Tension-type headache, unspecified, not intractable; J45.909 Unspecified asthma, uncomplicated; Z21 Asymptomatic human immunodeficiency virus [HIV] infection status; Z87.11 Personal history of peptic ulcer disease; X58.XXXA Exposure to other specified factors, initial encounter; Y93.89 Activity, other specified; Y92.89 Other specified places as the place of occurrence of the external cause; Y99.8 Other external cause status
CPT/HCPCS: 99283

== ENCOUNTER 2018-11-14 22:48 | Emergency (ER) | payer MEDICAID ==
[~2018-11-14] VITALS: Ht 182.9 cm; Wt 68.0 kg
--- NOTE | 2018-11-14 22:58 | NUR ---
PT BIB [facility] C/O WALTERS AND R CP/ABD PAIN SINCE 1999 THIS PM S/T TAKING HIV MEDICATION. DID NOT TAKE MEDICATION FOR 2 DAYS PRIOR TO THIS. HAS HAD SIMILAR INTERACTION IN PAST. STATES PHOTOPHOBIC, NEURO OTHERWISE FULLY INTACT. BLOOD SUGAR OF 73 NOTED BY [facility]. ALL MONITORING APPLIED. VSS. CALL LIGHT WITHIN REACH.
[2018-11-14 23:44] LABS: BASOPHILS # (AUTO) 0.03 x10^3/uL (0-0.1); BASOPHILS % (AUTO) 0 % (0-1); EOSINOPHILS # (AUTO) 0.14 x10^3/uL (0-0.4); EOSINOPHILS % (AUTO) 2 % (1-7); LYMPHOCYTES # (AUTO) 2.32 x10^3/uL (1-3.4); LYMPHOCYTES % (AUTO) 35 % (22-44); MD NO; MEAN CORPUSCULAR HEMOGLOBIN 31.6 pg (27.5-34.5); MEAN CORPUSCULAR HGB CONC 34.1 g/dL (33.2-36.2); MEAN CORPUSCULAR VOLUME 92.7 fL (81-97); MEAN PLATELET VOLUME 8.6 fL (7.4-10.4); MONOCYTES # (AUTO) 0.89 x10^3/uL (0.2-0.8); MONOCYTES % (AUTO) 13 % (2-9); NEUTROPHILS # (AUTO) 3.31 x10^3/uL (1.8-6.8); NEUTROPHILS % (AUTO) 50 % (42-75); PLATELET COUNT 191 x10^3/uL (130-400); RED BLOOD COUNT 4.46 x10^6/uL (4.38-5.82); RED CELL DISTRIBUTION WIDTH 14.8 % (9.4-14.8)
[2018-11-14 23:49] LABS: ALANINE AMINOTRANSFERASE 14 U/L (12-78); ALBUMIN 3.7 g/dL (3.4-5.0); ANION GAP 5 mmol/L (5-15); CALCIUM 8.7 mg/dL (8.5-10.1); CHLORIDE 110 mmol/L (98-107); CREATININE 1.25 mg/dL (0.7-1.3)
[2018-11-14 23:53] LABS: ALKALINE PHOSPHATASE 97 U/L (45-117); TOTAL PROTEIN 7.2 g/dL (6.4-8.2); TROPONIN I < 0.015 ng/mL (0.000-0.045)
--- NOTE | 2018-11-14 23:54 | NUR ---
PT in CT.
[2018-11-15 00:01] LABS: BILIRUBIN,TOTAL < 0.1 mg/dL (0.2-1.0)
--- NOTE | 2018-11-15 00:32 | NUR ---
Pt sleeping comfortably on gurney. Nadn. vss. Call light within reach. Awaiting ct results.
--- NOTE | 2018-11-15 00:37 | NUR ---
All results back. Pt up for recheck.
[2018-11-15 01:30] VITALS: BP 108/67
[2018-11-15] MEDS ORDERED: KETOROLAC 30 MG/1 ML ONE (01:53)
[2018-11-15] MEDS ORDERED: ONDANSETRON ODT 4 MG ONE (01:53)
[2018-11-15] MEDS ORDERED: DIPHENHYDRAMINE 25 MG CAPSULE ONE (01:53)
[2018-11-15] MEDS ORDERED: KETOROLAC 30 MG/1 ML IM ONE (02:00)
[2018-11-15] MEDS ORDERED: DIPHENHYDRAMINE 25 MG CAPSULE PO ONE (02:00)
[2018-11-15] MEDS ORDERED: ONDANSETRON ODT 4 MG PO ONE (02:00)
== END 2018-11-15 02:23 | disposition home or self-care (01) ==
LOC: ED 23:18
DX: G44.209 Tension-type headache, unspecified, not intractable (principal); R07.89 Other chest pain
CPT/HCPCS: 36415; 70450; 71045; 80053; 84484; 85025; 93005; 96372; 99284; J1885; Q0162; Q0163

== ENCOUNTER 2018-12-12 17:57 | Emergency (ER) | payer MEDICAID ==
[~2018-12-12] VITALS: Ht 182.9 cm; Wt 73.1 kg
--- NOTE | 2018-12-12 18:08 | NUR ---
EKG DONE IN TRIAGE.
--- NOTE | 2018-12-12 18:20 | NUR ---
Dr. Elam at bedside to evaluate pt. Pt reports that his pain started appx 2 days ago after a hard work out at the gym. Pt states he's been taking ibuprofen throughout the day since the pain started. Pt noncompliant on seizure medications (Rubi).
[2018-12-12] MEDS ORDERED: ABAC1TAB14 PO (18:22)
--- NOTE | 2018-12-12 18:29 | NUR ---
Pt ambulated to bathroom, no assistance required. Urine sample requested.
[2018-12-12] MEDS ORDERED: IBUPROFEN 600 MG TABLET PO ONE (18:30)
[2018-12-12] MEDS ORDERED: ACETAMINOPHEN 500 MG TABLET PO ONE (18:30)
[2018-12-12] MEDS ORDERED: ACETAMINOPHEN 500 MG TABLET ONE (18:36)
[2018-12-12] MEDS ORDERED: IBUPROFEN 600 MG TABLET ONE (18:36)
[2018-12-12 18:43] LABS: MICROSCOPIC NOT IND
[2018-12-12 18:50] LABS: CULTURE INDICATED? NO
[2018-12-12 18:53] LABS: BASOPHILS # (AUTO) 0.03 x10^3/uL (0-0.1); BASOPHILS % (AUTO) 1 % (0-1); EOSINOPHILS # (AUTO) 0.11 x10^3/uL (0-0.4); EOSINOPHILS % (AUTO) 2 % (1-7); LYMPHOCYTES # (AUTO) 2.38 x10^3/uL (1-3.4); LYMPHOCYTES % (AUTO) 42 % (22-44); MD NO; MEAN CORPUSCULAR HEMOGLOBIN 31.8 pg (27.5-34.5); MEAN CORPUSCULAR HGB CONC 33.1 g/dL (33.2-36.2); MEAN CORPUSCULAR VOLUME 95.8 fL (81-97); MEAN PLATELET VOLUME 9.2 fL (7.4-10.4); MONOCYTES # (AUTO) 0.81 x10^3/uL (0.2-0.8); MONOCYTES % (AUTO) 14 % (2-9); NEUTROPHILS % (AUTO) 41 % (42-75); PLATELET COUNT 216 x10^3/uL (130-400); RED BLOOD COUNT 4.87 x10^6/uL (4.38-5.82); RED CELL DISTRIBUTION WIDTH 14.2 % (9.4-14.8)
[2018-12-12 18:55] LABS: ALBUMIN 3.9 g/dL (3.4-5.0); ANION GAP 7 mmol/L (5-15); CALCIUM 8.7 mg/dL (8.5-10.1); CHLORIDE 107 mmol/L (98-107); CREATININE 1.45 mg/dL (0.7-1.3)
[2018-12-12 19:10] LABS: CREATINE KINASE, TOTAL 1624 U/L (39-308)
--- NOTE | 2018-12-12 19:46 | NUR ---
Pt resting on gurney, no acute distress noted. Pt's chart up for recheck.
[2018-12-12 19:49] VITALS: BP 112/50
--- NOTE | 2018-12-12 20:10 | NUR ---
Patient/Caregiver given discharge instructions and they have confirmed that they understand the instructions. Patient ambulatory with steady gait.
== END 2018-12-12 20:11 | disposition home or self-care (01) ==
LOC: ED 18:46
DX: R07.89 Other chest pain (principal); M54.6 Pain in thoracic spine; M54.5 Low back pain; M62.82 Rhabdomyolysis; N17.9 Acute kidney failure, unspecified; J45.909 Unspecified asthma, uncomplicated; Z87.11 Personal history of peptic ulcer disease
CPT/HCPCS: 36415; 71045; 80048; 81003; 82040; 82550; 85025; 93005; 99284

== ENCOUNTER 2019-02-26 14:50 | Emergency (ER) | payer MEDICAID ==
[~2019-02-26] VITALS: Ht 182.9 cm; Wt 71.7 kg
[2019-02-26 17:06] VITALS: BP 122/84
== END 2019-02-26 17:09 | disposition home or self-care (01) ==
LOC: ED 15:37 → UNDOADMIN 16:03 → EDIP 16:03 → ED 17:09
DX: K29.20 Alcoholic gastritis without bleeding (principal); F10.10 Alcohol abuse, uncomplicated; Y90.9 Presence of alcohol in blood, level not specified
CPT/HCPCS: 36415; 80053; 83690; 85025; 93005; 96374; 99284; J2405

== ENCOUNTER 2019-08-16 10:43 | Emergency (ER) | payer MEDICAID ==
[~2019-08-16] VITALS: Ht 182.9 cm; Wt 74.2 kg
[~2019-08-16 10:43] MED LIST changes: +ABAC1TAB14 PO
[2019-08-16] MEDS ORDERED: KETOROLAC 30 MG/1 ML IM ONE (11:30)
[2019-08-16] MEDS ORDERED: KETOROLAC 60 MG/2 ML ONE (11:42)
[2019-08-16 11:45] LABS: BASOPHILS # (AUTO) 0.03 x10^3/uL (0-0.1); BASOPHILS % (AUTO) 0 % (0-1); EOSINOPHILS # (AUTO) 0.06 x10^3/uL (0-0.4); EOSINOPHILS % (AUTO) 1 % (1-7); LYMPHOCYTES # (AUTO) 1.97 x10^3/uL (1-3.4); LYMPHOCYTES % (AUTO) 26 % (22-44); MD NO; MEAN CORPUSCULAR HEMOGLOBIN 31.5 pg (27.5-34.5); MEAN CORPUSCULAR HGB CONC 33.2 g/dL (33.2-36.2); MEAN CORPUSCULAR VOLUME 94.9 fL (81-97); MONOCYTES # (AUTO) 1.15 x10^3/uL (0.2-0.8); MONOCYTES % (AUTO) 15 % (2-9); NEUTROPHILS # (AUTO) 4.44 x10^3/uL (1.8-6.8); NEUTROPHILS % (AUTO) 58 % (42-75); PLATELET COUNT 203 x10^3/uL (130-400); RED BLOOD COUNT 4.38 x10^6/uL (4.38-5.82); RED CELL DISTRIBUTION WIDTH 13.8 % (9.4-14.8)
[2019-08-16 11:57] LABS: ALANINE AMINOTRANSFERASE 7 U/L (12-78); ALBUMIN 3.4 g/dL (3.4-5.0); ANION GAP 5 mmol/L (5-15); CALCIUM 8.3 mg/dL (8.5-10.1); CHLORIDE 107 mmol/L (98-107); CREATININE 1.25 mg/dL (0.7-1.3)
[2019-08-16 12:01] LABS: ALKALINE PHOSPHATASE 96 U/L (45-117); BILIRUBIN,TOTAL 0.4 mg/dL (0.2-1.0); TOTAL PROTEIN 6.9 g/dL (6.4-8.2); TROPONIN I < 0.015 ng/mL (0.000-0.045)
[2019-08-16 13:10] LABS: HCT (SEDRATE) 41.6 % (39.2-51.8)
[2019-08-16 13:23] VITALS: BP 106/64
== END 2019-08-16 14:01 | disposition home or self-care (01) ==
LOC: ED 11:07
DX: J06.9 Acute upper respiratory infection, unspecified (principal); R51 Headache; J45.909 Unspecified asthma, uncomplicated; Z88.8 Allergy status to other drugs, medicaments and biological substances
CPT/HCPCS: 36415; 71045; 80053; 83880; 84484; 85025; 85651; 86140; 93005; 99284

== ENCOUNTER 2020-01-26 07:37 | Emergency (ER) | payer MEDICAID ==
[~2020-01-26] VITALS: Ht 182.9 cm; Wt 69.9 kg
[2020-01-26] MEDS ORDERED: KEPPRA PO (08:18)
[2020-01-26] MEDS ORDERED: ASPIRIN 81 MG TABLET CHEW ONE (08:23)
[2020-01-26] MEDS ORDERED: LORazepam 2 MG/ML, 1ML ONE (08:24)
[2020-01-26] MEDS ORDERED: LORazepam 2 MG/ML, 1ML IVPush ONE (08:30)
[2020-01-26] MEDS ORDERED: ASPIRIN 81 MG TABLET CHEW PO ONE (08:30)
[2020-01-26 08:38] LABS: BASOPHILS # (AUTO) 0.08 x10^3/uL (0-0.1); BASOPHILS % (AUTO) 2 % (0-1); EOSINOPHILS # (AUTO) 0.12 x10^3/uL (0-0.4); EOSINOPHILS % (AUTO) 2 % (1-7); LYMPHOCYTES # (AUTO) 2.85 x10^3/uL (1-3.4); LYMPHOCYTES % (AUTO) 52 % (22-44); MD NO; MEAN CORPUSCULAR HEMOGLOBIN 30.8 pg (27.5-34.5); MEAN CORPUSCULAR HGB CONC 32.7 g/dL (33.2-36.2); MEAN CORPUSCULAR VOLUME 94.2 fL (81-97); MEAN PLATELET VOLUME 8.5 fL (7.4-10.4); MONOCYTES # (AUTO) 0.97 x10^3/uL (0.2-0.8); MONOCYTES % (AUTO) 18 % (2-9); NEUTROPHILS # (AUTO) 1.47 x10^3/uL (1.8-6.8); NEUTROPHILS % (AUTO) 27 % (42-75); PLATELET COUNT 265 x10^3/uL (130-400); RED BLOOD COUNT 5.15 x10^6/uL (4.38-5.82)
[2020-01-26 08:44] LABS: ALBUMIN 4.2 g/dL (3.4-5.0); ANION GAP 6 mmol/L (5-15); CALCIUM 9.4 mg/dL (8.5-10.1); CHLORIDE 106 mmol/L (98-107)
[2020-01-26 08:48] LABS: AMPHETAMINE SCREEN, URINE Positive (Negative); BARBITURATE SCREEN, URINE Negative (Negative); CANNABINOID SCREEN, URINE Positive (Negative); COCAINE SCREEN, URINE Positive (Negative); METHADONE SCREEN, URINE Negative (Negative)
[2020-01-26 08:50] LABS: CREATININE 1.28 mg/dL (0.7-1.3); TROPONIN I < 0.015 ng/mL (0.000-0.045)
[2020-01-26 08:50] LABS: BENZODIAZEPINE SCREEN, URINE Negative (Negative); OPIATE SCREEN, URINE Negative (Negative)
--- NOTE | 2020-01-26 09:01 | NUR ---
PT UPRIGHT ON GURNEY AWAKE & TALKING ON CELLPHONE, RESPONDS APPROP TO STAFF- STATES "WALTERS A LITTLE BETTER & NAUSEA & DIZZINESS IS GONE" AFTER MEDS, COMFORT MEASURES PROVIDED, CALL LIGHT WITHIN REACH.
--- NOTE | 2020-01-26 09:02 | NUR ---
Sonia llanes in [facility] - 01/26/20 at 1021 by LUAN PT LAYING ON GURNEY WITH EYES CLOSED, RESTING COMFORTABLY, RESPONDS APPROP TO STAFF, NAD, NO NEEDS AT THIS TIME, CALL LIGHT WITHIN REACH.
[2020-01-26 09:49] LABS: HCT (SEDRATE) 48.5 % (39.2-51.8)
[2020-01-26 10:01] VITALS: BP 113/71
--- NOTE | 2020-01-26 10:02 | NUR ---
PT LAYING ON GURNEY WITH EYES CLOSED, RESTING COMFORTABLY, RESPONDS APPROP TO STAFF, NAD, NO NEEDS AT THIS TIME, CALL LIGHT WITHIN REACH.
--- NOTE | 2020-01-26 11:00 | NUR ---
REPORT GIVEN TO BILL
== END 2020-01-26 12:26 | disposition home or self-care (01) ==
LOC: ED 12:10
DX: R00.0 Tachycardia, unspecified (principal); R51 Headache; R42 Dizziness and giddiness; R11.0 Nausea; I21.9 Acute myocardial infarction, unspecified; G40.909 Epilepsy, unspecified, not intractable, without status epilepticus; J45.909 Unspecified asthma, uncomplicated
CPT/HCPCS: 36415; 70450; 71045; 80048; 80307; 82040; 83880; 84484; 85025; 85651; 86140; 93005; 93306; 93356; 96374; 99285; J2060

== ENCOUNTER 2021-03-11 08:08 | Emergency (ER) | payer MEDICAID ==
[~2021-03-11] VITALS: Ht 182.9 cm; Wt 69.7 kg
[~2021-03-11 08:08] MED LIST changes: +KEPPRA PO
--- NOTE | 2021-03-11 08:24 | NUR ---
PT BIB FRIEND FOR COMPLAINT OF RT SIDE PAIN (ABD TO SHOULDER), STARTED THIS MORNING. DENIES N/V. PT STATES "IT JUST FEELS CRAMPY ALL UP MY SIDE". PT STATES ONLY HX IS HIV & SZ. PT ALSO REPORTS HE USES METH WEEKLY. PT RESTING IN [place] AT THIS TIME, FRIEND AT BEDSIDE, LUISA.
[2021-03-11 09:14] LABS: BASOPHILS % (AUTO) 1 % (0-1); EOSINOPHILS % (AUTO) 0 % (1-7); LYMPHOCYTES % (AUTO) 27 % (22-44); MEAN CORPUSCULAR HEMOGLOBIN 31.6 pg (27.5-34.5); MEAN CORPUSCULAR HGB CONC 34.4 g/dL (33.2-36.2); MEAN PLATELET VOLUME 8.2 fL (7.4-10.4); MONOCYTES % (AUTO) 11 % (2-9); NEUTROPHILS % (AUTO) 61 % (42-75); PLATELET COUNT 281 x10^3/uL (130-400); RED BLOOD COUNT 4.66 x10^6/uL (4.38-5.82); RED CELL DISTRIBUTION WIDTH 13.3 % (9.4-14.8)
[2021-03-11 09:24] LABS: ALBUMIN 3.7 g/dL (3.4-5.0); ANION GAP 10 mmol/L (5-15); CHLORIDE 103 mmol/L (98-107)
[2021-03-11 09:29] LABS: ALANINE AMINOTRANSFERASE 22 U/L (12-78); ALKALINE PHOSPHATASE 79 U/L (45-117); BILIRUBIN,TOTAL 0.7 mg/dL (0.2-1.0); CREATININE 1.04 mg/dL (0.7-1.3); TOTAL PROTEIN 7.2 g/dL (6.4-8.2)
[2021-03-11] MEDS ORDERED: OMNIPAQUE 350 MG/ML, 100ML BOTTLE ONE (10:39)
[2021-03-11 11:08] VITALS: BP 134/74
[2021-03-11 11:57] LABS: MICROSCOPIC NOT IND
== END 2021-03-11 12:29 | disposition home or self-care (01) ==
LOC: ED 08:38
DX: R10.31 Right lower quadrant pain (principal)
CPT/HCPCS: 36415; 74022; 74177; 80053; 81003; 85025; 99285; Q9967